=== PATIENT | female | born 1960 | race Asian ===

== ENCOUNTER 2021-08-14 05:43 | Day surgery (SDC) | payer OTHER ==
[~2021-08-14] VITALS: Ht 152.4 cm; Wt 53.6 kg
[2021-08-14] MEDS ORDERED: SODIUM CHLORIDE 0.9% 1,000 ML IV ONE (06:30)
[2021-08-14 06:48] LABS: COVID AG,FIA SOURCE NASOPHARYNGEAL
[2021-08-14] MEDS ORDERED: FentaNYL CITRATE PF 100 MCG/2 ML VIAL ONE (07:30)
[2021-08-14] MEDS ORDERED: MIDAZOLAM HCL 5 MG/ML VIAL ONE (07:30)
[2021-08-14 07:46] LABS: GLUCOMETER DEV NAME(LOC) SDS.; GLUCOSE,POINT OF CARE 63 MG/DL (70-110)
[2021-08-14] MEDS ORDERED: MethylPREDNISolone SOD SUCC 125 MG/2 ML VIAL ONE (08:59)
[2021-08-14] MEDS ORDERED: MethylPREDNISolone SOD SUCC 125 MG/2 ML VIAL IVP ONE (09:15)
[2021-08-14] MEDS ORDERED: FAMO20 PO (09:24)
[2021-08-14] MEDS ORDERED: MONT-35 PO (09:24)
[2021-08-14] MEDS ORDERED: BECL10.6 IH (09:24)
[2021-08-14] MEDS ORDERED: CHOL-35 PO (09:24)
[2021-08-14] MEDS ORDERED: METF-1185 PO (09:24)
[2021-08-14] MEDS ORDERED: ASPI-1444 PO (09:24)
[2021-08-14] MEDS ORDERED: OXYGEN THERAPY IH SCH (20:00)
== END 2021-08-14 11:10 | disposition home or self-care (01) ==
LOC: SURGERY 05:43
PROVIDERS: ATTEND Internal Medicine Critical Care Medicine
DX: J38.4 Edema of larynx (principal); B37.0 Candidal stomatitis; J45.909 Unspecified asthma, uncomplicated; E11.9 Type 2 diabetes mellitus without complications; D64.9 Anemia, unspecified; Z79.82 Long term (current) use of aspirin; Z79.899 Other long term (current) drug therapy; Z90.710 Acquired absence of both cervix and uterus; Z98.890 Other specified postprocedural states
CPT/HCPCS: 31623; 31624; 71045; 82962; 87015; 87070; 87101; 87205; 87206; 87220; 87426; 88112; 88184; 88185; 88312; C9803; J2250; J2930; J3010

== ENCOUNTER 2024-08-24 06:42 | Day surgery (SDC) | payer OTHER ==
[~2024-08-24] VITALS: Ht 152.4 cm; Wt 51.8 kg
[~2024-08-24 06:42] MED LIST: ASPI-1444 PO; BECL10.6 IH; CHOL25TA4 PO; FAMO20 PO; METF-1185 PO; MONT-35 PO; SODIUM CHLORIDE 0.9% 1,000 ML ONE
[2024-08-24] MEDS ORDERED: LIDOCAINE 4% 50 ML SOLUTION TP ONE (06:43)
[2024-08-24] MEDS ORDERED: LIDOCAINE 2% 11 ML JELLY TP ONE (06:43)
[2024-08-24] MEDS ORDERED: BENZOCAINE 20% 50 MCG/SPRAY 57 GM TP ONE (06:43)
[2024-08-24] MEDS ORDERED: ALBUTEROL SULFATE 2.5 MG/0.5 ML NEB SOLUTION NEB ONE (06:43)
[2024-08-24] MEDS ORDERED: SODIUM CHLORIDE 0.9% 1,000 ML ONE (06:57)
[2024-08-24] MEDS: SODIUM CHLORIDE 0.9% 1,000 ML IV ONE (07:33)
[2024-08-24 07:50] LABS: GLUCOMETER DEV NAME(LOC) SDS.; GLUCOSE,POINT OF CARE 175 MG/DL (70-110)
[2024-08-24] MEDS ORDERED: FentaNYL CITRATE PF 100 MCG/2 ML VIAL ONE (08:09)
[2024-08-24] MEDS ORDERED: MIDAZOLAM HCL 2 MG/2 ML VIAL ONE (08:09)
[2024-08-24 09:30] VITALS: PULSE 72; RESP 16; O2SAT 100
[2024-08-24] MEDS ORDERED: MethylPREDNISolone SOD SUCC 125 MG/2 ML VIAL ONE (09:44)
[2024-08-24] MEDS: MethylPREDNISolone SOD SUCC 125 MG/2 ML VIAL IVP ONE (10:02)
== END 2024-08-24 11:40 | disposition home or self-care (01) ==
LOC: SURGERY 06:42
PROVIDERS: ATTEND Internal Medicine Critical Care Medicine
DX: R05.3 Chronic cough (principal); R06.2 Wheezing; R49.0 Dysphonia; R04.2 Hemoptysis; J38.4 Edema of larynx; B37.0 Candidal stomatitis; E11.9 Type 2 diabetes mellitus without complications; Z79.82 Long term (current) use of aspirin; Z79.84 Long term (current) use of oral hypoglycemic drugs; Z79.899 Other long term (current) drug therapy; Z98.42 Cataract extraction status, left eye; Z98.891 History of uterine scar from previous surgery; Z98.890 Other specified postprocedural states
CPT/HCPCS: 31623; 31624; 71045; 82962; 87015; 87070; 87101; 87186; 87206; 87220; 88108; 94640; J2250; J2919; J3010; J7030; J7613; Z7610